=== PATIENT | male | born 1955 | race African-American/Black ===

== ENCOUNTER 2020-10-21 13:23 | Inpatient (IN) ==
[2020-10-21 18:21] LABS: Albumin 4.1 G/DL (3.4-5.0); Bilirubin,Total 0.5 MG/DL (0.2-1.0); Calcium 10.4 MG/DL (8.5-10.1); Total Protein 9.1 G/DL (6.4-8.3)
[2020-10-21 19:01] LABS: Basophils % 0.2 % (0.0-0.8); Hematocrit 35.4 VOL% (42.0-52.0); Hemoglobin 12.1 GM/DL (14.0-18.0); Immature Granulocytes % 0.7 %; Immature Granulocytes Absolute 0.08 #; Lymphocytes # 0.8 10*3/uL (1.4-4.0); Lymphocytes % 6.6 % (21.2-54.2); Mean Corpuscular HGB Conc 34.2 GM/DL (32-36); Mean Corpuscular Volume 80.8 FL (87-102); Mean Platelet Volume 9.5 FL (9.6-12.0); Monocytes % 6.7 % (1.7-12.7); Neutrophils % 85.8 % (38.7-73.9); Platelet Count 319 T/CUMM (130-400); Red Blood Count 4.38 MC/CUMM (3.8-5.5); Red Cell Distribution Width 13.2 % (9.3-17.3); White Blood Count 12.2 T/CUMM (4-12)
[2020-10-21] MEDS ORDERED: ONDANSETRON 4 MG/2 ML VIAL ONE (19:18)
[2020-10-21] MEDS ORDERED: PANTOPRAZOLE 40 MG VIAL IV ONE (19:18)
[2020-10-21] MEDS ORDERED: METOCLOPRAMIDE 10 MG/2 ML VIAL ONE (19:18)
[2020-10-21] MEDS ORDERED: PANTOPRAZOLE 40 MG VIAL IV STA (19:33)
[2020-10-21] MEDS ORDERED: METOCLOPRAMIDE 10 MG/2 ML VIAL IV STA (19:34)
[2020-10-21] MEDS ORDERED: SODIUM CHLORIDE 0.9% 1,000 ML IV STA (19:35)
[2020-10-21] MEDS ORDERED: ONDANSETRON 4 MG/2 ML VIAL IV STA (19:35)
[2020-10-21] MEDS ORDERED: ACETAMINOPHEN 325 MG TABLET PO PRN (20:10)
[2020-10-21] MEDS ORDERED: GLUCAGON 1 MG VIAL IM PRN ×3 (20:10→20:43)
[2020-10-21] MEDS ORDERED: ONDANSETRON 4 MG/2 ML VIAL IV PRN (20:10)
[2020-10-21] MEDS ORDERED: DEXTROSE 50% 25 GM/50 ML VIAL IV PRN ×3 (20:10→20:43)
[2020-10-21] MEDS ORDERED: PANTOPRAZOLE INJ 200 MG in SODIUM CHLORIDE 0.9% 250 ML IV SCH (20:30)
[2020-10-21] MEDS ORDERED: LACTATED RINGERS 1,000 ML IV SCH (20:30)
[2020-10-21] MEDS: INSULIN LISPRO 100 UNIT/ML SUBCUT SCH (23:10)
[2020-10-21 23:29] LABS: Hematocrit 34.1 VOL% (42.0-52.0); Hemoglobin 11.7 GM/DL (14.0-18.0)
[2020-10-22 02:18] LABS: Hematocrit 32.7 VOL% (42.0-52.0); Hemoglobin 11.2 GM/DL (14.0-18.0)
[2020-10-22 07:22] LABS: Basophils % 0.3 % (0.0-0.8); Eosinophils % 0.2 % (0.00-10.9); Hematocrit 32.6 VOL% (42.0-52.0); Hemoglobin 10.8 GM/DL (14.0-18.0); Immature Granulocytes % 0.5 %; Immature Granulocytes Absolute 0.06 #; Lymphocytes # 1.9 10*3/uL (1.4-4.0); Lymphocytes % 15.6 % (21.2-54.2); Mean Corpuscular HGB Conc 33.1 GM/DL (32-36); Mean Corpuscular Volume 81.9 FL (87-102); Mean Platelet Volume 9.5 FL (9.6-12.0); Monocytes % 11.6 % (1.7-12.7); Neutrophils % 71.8 % (38.7-73.9); Platelet Count 280 T/CUMM (130-400); Red Blood Count 3.98 MC/CUMM (3.8-5.5); Red Cell Distribution Width 13.4 % (9.3-17.3); White Blood Count 12.4 T/CUMM (4-12)
[2020-10-22 07:55] LABS: Calcium 9.3 MG/DL (8.5-10.1); Osmolality,Calculated 284.7 MOS/KG (273-304); Risk Ratio 2.88; Thyroid Stimulating Hormone 0.734 uIU/ml (0.358-3.74); VLDL CHOLESTEROL 17.2 MG/DL
[2020-10-22] MEDS: lisinopriL 20 MG TABLET PO SCH (09:39)
[2020-10-22] MEDS: BICALUTAMIDE 50 MG TABLET PO SCH (09:40)
[2020-10-22] MEDS: INSULIN LISPRO 100 UNIT/ML SUBCUT SCH ×4 (09:42→22:26)
[2020-10-22 09:53] LABS: Hematocrit 32.5 VOL% (42.0-52.0)
[2020-10-22] MEDS: POTASSIUM CHLORIDE 20 MEQ TABLET PO PRN ×2 (12:53→21:24)
[2020-10-22 15:35] LABS: Hematocrit 30.5 VOL% (42.0-52.0); Hemoglobin 10.3 GM/DL (14.0-18.0)
[2020-10-22] MEDS: PANTOPRAZOLE 40 MG VIAL IV SCH (21:24)
[2020-10-23 06:06] LABS: Basophils # 0.1 10*3/uL (0.0-0.2); Basophils % 0.7 % (0.0-0.8); Eosinophils # 0.1 10*3/uL (0.0-0.87); Hematocrit 32.2 VOL% (42.0-52.0); Hemoglobin 10.6 GM/DL (14.0-18.0); Immature Granulocytes % 0.2 %; Immature Granulocytes Absolute 0.02 #; Lymphocytes # 1.7 10*3/uL (1.4-4.0); Lymphocytes % 20.4 % (21.2-54.2); Mean Corpuscular HGB Conc 32.9 GM/DL (32-36); Mean Corpuscular Volume 82.4 FL (87-102); Mean Platelet Volume 9.9 FL (9.6-12.0); Monocytes % 11.4 % (1.7-12.7); Neutrophils % 66.3 % (38.7-73.9); Platelet Count 275 T/CUMM (130-400); Red Blood Count 3.91 MC/CUMM (3.8-5.5); Red Cell Distribution Width 13.4 % (9.3-17.3); White Blood Count 8.2 T/CUMM (4-12)
[2020-10-23 06:26] LABS: Calcium 9.3 MG/DL (8.5-10.1); Osmolality,Calculated 282.5 MOS/KG (273-304)
[2020-10-23 06:38] LABS: Troponin I 0.079 NG/ML (0.00-0.045)
[2020-10-23] MEDS ORDERED: LACTATED RINGERS 1,000 ML IV SCH (08:00)
[2020-10-23] MEDS: INSULIN LISPRO 100 UNIT/ML SUBCUT SCH ×2 (08:09→12:25)
[2020-10-23] MEDS: BICALUTAMIDE 50 MG TABLET PO SCH (08:45)
[2020-10-23] MEDS: PANTOPRAZOLE 40 MG VIAL IV SCH (08:45)
[2020-10-23] MEDS: lisinopriL 20 MG TABLET PO SCH (08:45)
[2020-10-23] MEDS ORDERED: POTASSIUM CHLORIDE 20 MEQ TABLET PO ONE (10:00)
[2020-10-23] MEDS ORDERED: MAGNESIUM SULF RIDER 2 GM in PREMIX 1 EACH IV ONE (10:00)
[2020-10-23] MEDS ORDERED: LIDOCAINE 2% 5 ML VIAL ONE (11:52)
[2020-10-23] MEDS ORDERED: propofoL 200 MG/20 ML VIAL IV ONE (11:52)
[2020-10-23 12:56] VITALS: BP 153/84
== END 2020-10-23 16:20 | disposition home or self-care (01) | DRG 813 ==
LOC: N.ED 13:23 → N.EDINP 13:23 → N.5E 10-22 00:43
PROVIDERS: ADMIT Internal Medicine; ATTEND Internal Medicine